=== PATIENT | male | born 1980 | race African-American/Black ===

== ENCOUNTER 2018-10-13 12:56 | Day surgery (SDC) | payer OTHER ==
[~2018-10-13] VITALS: Ht 190.5 cm; Wt 123.6 kg
[2018-10-13] MEDS ORDERED: IRON TABLETS325 MG PO (13:16)
[2018-10-13] MEDS ORDERED: PRILOSEC 20MG20 MG PO (13:16)
[2018-10-13] MEDS ORDERED: PERIACTIN 4MG TA4 MG PO (13:17)
[2018-10-13] MEDS ORDERED: ZYRTEC 10MG10 MG PO (13:18)
[2018-10-13] MEDS ORDERED: INDERAL 20MG20 MG PO (13:18)
[2018-10-13] MEDS ORDERED: PROZAC 20MG20 MG PO (13:19)
[2018-10-13] MEDS ORDERED: ZYLOPRIM 300MG300 MG PO (13:20)
[2018-10-13] MEDS ORDERED: NORVASC 10MG10 MG PO (13:21)
[2018-10-13] MEDS ORDERED: DIOVAN320 MG PO (13:21)
[2018-10-13 14:00] VITALS: BP 129/88; PULSE 84; TEMP 98.6
[2018-10-13 15:10] VITALS: BP 123/83; PULSE 90
--- NOTE | 2018-10-13 15:10 | NUR ---
Patient returns to room 3 per cart and transfers from cart to recliner with 2 person assist. Room air sats 96% and temp 97.9. IV fluids infusing and denies pain or nausea. Spouse in room and patient talking with spouse. Call light in reach.
--- NOTE | 2018-10-13 15:11 | NUR ---
Dr. Ling here to talk with the patient and spouse and all questions answered.
[2018-10-13] MEDS ORDERED: ANUSOL-HC SUPPO25 MG RC (15:20)
[2018-10-13 15:25] VITALS: BP 118/74; PULSE 86
--- NOTE | 2018-10-13 15:25 | NUR ---
Eating muffin and drinking apple juice. Denies pain or nausea.
[2018-10-13 15:40] VITALS: BP 121/84; PULSE 83
--- NOTE | 2018-10-13 15:40 | NUR ---
Tolerated muffin and juice. Denies difficulty swallowing or any nausea.
[2018-10-13 15:46] VITALS: BP 103/50; PULSE 84
--- NOTE | 2018-10-13 15:50 | NUR ---
IV discontinued and given dismissal instructions. Voices understanding of follow up with PCP and the need to start Aunsol suppositories for hemorrhoids. Patient dresses self.
--- NOTE | 2018-10-13 16:00 | NUR ---
Patient dismissed to home per private vehicle driven by spouse and taken to the front door per wheelchair and assisted into car with instructions in hand.
== END 2018-10-13 14:56 | disposition home or self-care (01) ==
LOC: SDCO 12:56
DX: K21.9 Gastro-esophageal reflux disease without esophagitis (principal); D50.9 Iron deficiency anemia, unspecified; K29.70 Gastritis, unspecified, without bleeding; K64.1 Second degree hemorrhoids; K64.4 Residual hemorrhoidal skin tags
CPT/HCPCS: J2250; J2704; J3010; J7030